=== PATIENT | male | born 1965 | race Two or more races ===

== ENCOUNTER 2017-04-18 12:25 | Emergency (ER) | payer OTHER ==
[~2017-04-18] VITALS: Ht 193 cm; Wt 108.9 kg
[2017-04-18] MEDS ORDERED: NKM (12:30)
[2017-04-18 12:35] VITALS: BP 136/87
[2017-04-18] MEDS ORDERED: Morphine Sulfate 4mg/ml Inj IM ONE ×2 (12:45→15:00)
--- NOTE | 2017-04-18 14:10 | Diagnostic Imaging Report ---
Indication: Headache Technique: Contiguous 5 mm thick transaxial imaging of the head obtained in a Siemens Sensation [address] scanner. Soft tissue and bone windows generated. Automatic Exposure Control was utilized. Total Dose length Product (DLP): 1519.[address] Dose Index Volume (CTDIvol): 70.38 mGy Comparison: none Findings: The size and configuration of the cortical sulci, basal cisterns, and ventricles are within normal limits for age. There is no mass effect, midline shift, or edema identified. There is no evidence of acute hemorrhage or abnormal intra-axial or extra-axial fluid collections. The bones and soft tissues are unremarkable. Impression: No mass effect, edema or acute bleed. The study is limited somewhat by artifacts The CT scanner at [facility] is accredited by the [employer] and the scans are performed using dose optimization techniques as appropriate to a performed exam including Automatic Exposure control.
--- NOTE | 2017-04-18 14:45 | Diagnostic Imaging Report ---
Indication: Neck pain and trauma Technique: Continuous helical imaging of the cervical spine was obtained transaxially from the skull base to the upper thoracic spine. 2-D coronal and sagittal reformatted images were obtained. Automatic Exposure Control was utilized. Total Dose length Product (DLP): 630.[address] Dose Index Volume (CTDIvol): 28.94 mGy Comparison: None Findings: There is no acute fracture or malalignment identified. There is no soft tissue swelling identified. 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 Some of the intervertebral discs show mild narrowing. Impression: No acute injury Mild spondylosis The CT scanner at [facility] is accredited by the [employer] and the scans are performed using dose optimization techniques as appropriate to a performed exam including Automatic Exposure control.
--- NOTE | 2017-04-18 14:48 | Diagnostic Imaging Report ---
Indication: Back pain Technique: Continuous helical transaxial imaging of the thoracic spine was obtained from the lung bases to the pubic symphysis. No IV contrast was administered. Coronal 2-D reformats were also obtained. Study obtained in a Siemens sensation [address] Total Dose length Product (DLP): 1861.[address] Dose Index Volume (CTDIvol): 38.77 mGy Comparison: None Findings: There is no fracture or malalignment identified. Marginal spurs are demonstrated at the vertebral endplates and costovertebral junctions at multiple locations. IMPRESSION: No acute injury The CT scanner at [facility] is accredited by the [employer] and the scans are performed using dose optimization techniques as appropriate to a performed exam including Automatic Exposure control.
--- NOTE | 2017-04-18 14:50 | Diagnostic Imaging Report ---
Indication: Back pain Technique: Continuous helical transaxial imaging of the lumbar spine was obtained from the lung bases to the pubic symphysis. No IV contrast was administered. Coronal 2-D reformats were also obtained. Study obtained in a Siemens sensation [address] Total Dose length Product (DLP): [address] Dose Index Volume (CTDIvol): 0.25, 22.02 mGy Comparison: None Findings: There is no evidence of an acute fracture or malalignment. Height and configuration of the vertebral bodies and intervertebral discs are within normal limits. Endplate spurs noted at multiple levels. Intervertebral discs are moderately narrowed at L3-4, L4-5 and L5-S1. The facets are hypertrophic. There is no soft tissue swelling. Impression: Negative for acute injury. Mild spondylosis The CT scanner at [facility] is accredited by the [employer] and the scans are performed using dose optimization techniques as appropriate to a performed exam including Automatic Exposure control.
--- NOTE | 2017-04-18 14:56 | Diagnostic Imaging Report ---
Indication: Pelvic trauma and pain Technique: Continuous helical transaxial imaging of the pelvis was obtained from the iliac crest to the pubic symphysis. Coronal 2-D reformats were also obtained. Study obtained in a Siemens sensation [address] Intravenous non-ionic contrast was administered. Total Dose length Product (DLP): 568.[address] Dose Index Volume (CTDIvol): 18.82 mGy Comparison: None Findings: There is no acute fracture or malalignment identified on this examination. The patient has had previous left hip trauma as there are 3 Quinn pins. The fracture addressed by the pins is not visualized and is presumably healed. Some arterial vascular calcifications are present. There is calcification of the prostate gland. A few diverticula noted in the visualized part of the sigmoid colon. Soft tissues are unremarkable. IMPRESSION: No acute injury identified. Old left hip fracture status post pinning. Other findings as above The CT scanner at [facility] is accredited by the [employer] and the scans are performed using dose optimization techniques as appropriate to a performed exam including Automatic Exposure control.
[2017-04-18] MEDS ORDERED: Ketorolac 30mg Inj IM ONE (15:00)
[2017-04-18] MEDS ORDERED: NORCO 5-325 TA1 EAC1 ORAL (15:01)
[2017-04-18] MEDS ORDERED: IBUPROFEN600 MG ORAL (15:01)
[2017-04-18 16:06] VITALS: BP 166/59
--- NOTE | 2017-04-18 20:52 | Emergency Room Report ---
History of Present Illness General Chief Complaint: Head, Face, Neck Trauma Source: Patient, EMS Present Illness HPI The patient is a 51-year-old male brought in by ambulance for pain after slipping and falling today. He states that he was descending stairs when he slipped. He believes he lost consciousness. He does not remember how many steps he fell down. He is unsure if he hit his head but does admit to pain to the back of his head. He is also having pain of the neck, mid back, and lower back. Pain is a 10 out of 10 dull ache. Worse with movement. He denies previous injury to these areas. He denies any numbness or tingling of the arms or legs. He denies other symptoms including nausea, vomiting, blurred vision, chest pain, shortness of breath. EMS placed the patient on a board and c-collar Allergies: Coded Allergies: No Known Allergies (Unverified , 04/18/17) Patient History Past Medical History: see triage record Pertinent Family History: none Reviewed Nursing Documentation: PMH: Agreed, PSxH: Agreed Nursing Documentation-PMH Past Medical History: No History, Except For Review of Systems All Other Systems: negative except mentioned in HPI Physical Exam Vital Signs Date Time Temp Pulse Resp B/P (MAP) Pulse Ox O2 Delivery O2 Flow Rate FiO2 04/18/17 12:25 97.3 76 17 136/87 99 Room Air Sp02 EP Interpretation: reviewed, normal General Appearance: no apparent distress, alert, GCS 15, non-toxic Head: normocephalic, atraumatic Eyes: bilateral eye normal inspection, bilateral eye PERRL ENT: hearing grossly normal, normal pharynx, no angioedema, normal voice, uvula midline Neck: tender lateral, tender midline, other - C collar Respiratory: chest non-tender, lungs clear, normal breath sounds, speaking full sentences Cardiovascular #1: regular rate, rhythm, no edema Musculoskeletal: back normal, gait/station normal, normal range of motion, non- tender Neurologic: alert, oriented x3, responsive, motor strength/tone normal, sensory intact, speech normal Psychiatric: judgement/insight normal, memory normal, mood/affect normal, no suicidal/homicidal ideation Skin: normal color, no rash, warm/dry, well hydrated Lymphatic: no adenopathy Medical Decision Making PA Attestation Dr. Cooper is my supervising physician. Patient management was discussed with my supervising physician Diagnostic Impression: Primary Impression: Contusion Additional Impressions: Muscle strain Fall Qualified Codes: W19.XXXA - Unspecified fall, initial encounter ER Course The patient is a 51-year-old male brought in by ambulance for pain after slipping and falling today Ddx considered include but not limited to sprain/strain, fracture, contusion, concussion, ICH PE: NAD Alert and oriented x3 No raccoon eyes or Lowery sign The patient has a c-collar on. There is tenderness diffusely over the neck including midline. No step-offs. There is tenderness all along the spine. No step-offs. Sensation is intact. No obvious deformity Pelvis is stable Patient is able to move arms and legs Extensive imaging done including CT scan of head, C-spine, T-spine, L-spine, and pelvis. No acute findings C-collar removed. The patient was given IM morphine and is feeling better. He'll be discharged home with pain medication and needs to follow up with primary doctor. ER precautions are given CT/MRI/US Diagnostic Results CT/MRI/US Diagnostic Results : Imaging Test Ordered: CT of Head, C spine, T spine, L spine, And pelvis Impression No acute findings Last Vital Signs Date Time Temp Pulse Resp B/P (MAP) Pulse Ox O2 Delivery O2 Flow Rate FiO2 04/18/17 16:08 97.4 04/18/17 16:06 99 17 166/59 99 Room Air Status: improved Disposition: HOME, SELF-CARE Condition: Improved Scripts Ibuprofen* (MOTRIN*) 600 Mg Tablet 600 MG ORAL Q8H Y for For Pain, #30 TAB 0 Refills Prov: TERZIANWILLYY P.A. 04/18/17 Hydrocodone Bit/Acetaminophen 5-325* (NORCO 5-325 TABLET*) 1 Each Tablet 1 TAB ORAL Q6HR Y for For Pain, #10 TAB Prov: TERWINIFREDANWILLYY P.A. 04/18/17 Referrals: NOT CHOSEN IPA/,REFERRING (PCP) Patient Instructions: Contusion, Muscle Strain Additional Instructions: I discussed my findings with the patient. All questions and concerns have been answered. Treatment and medication compliance have been addressed. I advised the patient that they need to follow up with PMD in 3-5 days. Return to ED if pain remains or worsens, numbness or tingling occurs, new rash is noticed, fever is noticed, or if needed for any reason. Patient verbalized understanding of discharge instructions. SOLOMON EARLY Apr 18, 2017 20:52
== END 2017-04-18 16:09 | disposition home or self-care (01) ==
LOC: EDBD 12:25 → EMR 12:57
DX: S10.93XA Contusion of unspecified part of neck, initial encounter (principal); S16.1XXA Strain of muscle, fascia and tendon at neck level, initial encounter; S39.012A Strain of muscle, fascia and tendon of lower back, initial encounter; W10.9XXA Fall (on) (from) unspecified stairs and steps, initial encounter; Y92.89 Other specified places as the place of occurrence of the external cause; M47.812 Spondylosis without myelopathy or radiculopathy, cervical region; M47.816 Spondylosis without myelopathy or radiculopathy, lumbar region; R51 Headache
CPT/HCPCS: 70450; 72125; 72128; 72131; 72192; 96372; 99284; J1885; J2270